=== PATIENT | female | born 1945 | race Asian ===

== ENCOUNTER 2016-06-18 12:22 | Emergency (ER) | payer BC, MEDICAID, OTHER ==
[~2016-06-18] VITALS: Ht 154.9 cm; Wt 51.0 kg
[~2016-06-18 12:22] MED LIST: ALEN35TA23 PO; ASPI-664 PO; LIPITOR PO; NORVASC PO
[2016-06-18 12:39] VITALS: Ht 154.9 cm; Wt 51.0 kg
[2016-06-18] MEDS ORDERED: IBUPROFEN 800 MG TAB PO ONE (15:00)
[2016-06-18] MEDS ORDERED: IBUP-1542 PO (15:28)
--- NOTE | 2016-06-18 15:31 | ERD ---
ER Documentation Chief Complaint Date/Time DATE: 06/18/16 TIME: 15:31 Chief Complaint HAS BACK PAIN AND COLD SYMPTOMS HPI Patient is a 70-year-old female with hypertension and high cholesterol presents with back pain. She has upper and middle back pain which started over the past 2 weeks. It has been coming and going and worse with movement. She also has a runny nose over the past 1 week. She feels like she has had a cold. She has not had any treatment other than Tylenol for pain as of yet. Her primary doctor is Dr. Raquel Tavarez. She has chest wall pain as well with movement. ROS All systems reviewed and are negative except as per history of present illness. Medications Home Meds Active Scripts Ibuprofen* (Motrin*) 600 Mg Tab, 600 MG PO Q6H Y for PAIN AND OR ELEVATED TEMP, #30 TAB Prov:DEBBIE TIERNEY MD 06/18/16 Reported Medications Aspirin* (Aspirin* EC) 81 Mg Tablet.dr, 81 MG PO DAILY, TAB 03/14/14 Alendronate Sodium* (Alendronate Sodium*) 35 Mg Tablet, 35 MG PO Q7D, TAB 03/14/14 [Norvasc] No Conflict Check, 20 MG PO QAM 02/07/14 [Lipitor] No Conflict Check, 10 MG PO QHS 02/07/14 Allergies Allergies: Coded Allergies: No Known Allergy (Unverified , 02/07/14) PMhx/Soc History of Surgery: Yes (COLON, APPENDIX) Anesthesia Reaction: No Hx Neurological Disorder: No Hx Respiratory Disorders: No Hx Cardiac Disorders: Yes (HTN, HIGH CHOLESTEROL, ) Hx Psychiatric Problems: No Hx Miscellaneous Medical Probl: No Hx Alcohol Use: Yes (RARE) Hx Substance Use: No Hx Tobacco Use: No Smoking Status: Never smoker FmHx Positive for hypertension Physical Exam Vitals Vital Signs Date Time Temp Pulse Resp B/P Pulse Ox O2 Delivery O2 Flow Rate FiO2 06/18/16 15:34 98.1 78 18 152/69 100 Room Air 06/18/16 12:39 99.4 77 18 166/77 100 Physical Exam Const: No acute distress Head: Atraumatic Eyes: Normal Conjunctiva ENT: Normal External Ears, Nose and Mouth. Neck: Full range of motion..~ No meningismus. Resp: Clear to auscultation bilaterally Cardio: Regular rate and rhythm, no murmurs Abd: Soft, non tender, non distended. Normal bowel sounds Skin: No petechiae or rashes Back: Bilateral upper back pain with palpation without midline tenderness to palpation Ext: No cyanosis, or edema Neur: Awake and alert Psych: Normal Mood and Affect Results 24 hrs Current Medications Medications (Trade) Dose Ordered Sig/Ana Route PRN Reason Start Time Stop Time Status Last Admin Dose Admin Ibuprofen (Motrin) 800 mg ONCE ONCE PO 06/18/16 15:00 06/18/16 15:01 DC 06/18/16 14:44 Procedures/MDM EKG read by me: Rate/Rhythm: Regular rate and rhythm at a rate of 78 Intervals: Normal Impression: No evidence of ischemia or arrhythmia Chest X-ray 1V Interpreted by me: Soft Tissue: No acute abnormalities Bones: No acute abnormalities Mediastinum/Cardiac Silhouette/Lungs: No acute abnormalities Patient is a 70-year-old female who presents with chest pain and upper back pain. Her EKG was normal and her chest x-ray shows no signs of pneumonia or pneumothorax. There is no widened mediastinum. She is otherwise well- appearing. Her symptoms appear to be musculoskeletal in nature. At this point I doubt acute coronary syndrome, pneumonia, pneumothorax, or pulmonary embolism. I believe outpatient management is appropriate. The patient was given ibuprofen for pain. She should follow-up closely however with her primary doctor within 24-48 hours for reevaluation. She can return for any worsening symptoms. Departure Diagnosis: Primary Impression: Back pain Back pain location: thoracic back pain Chronicity: acute Back pain laterality: bilateral Qualified Code: M54.6 - Acute bilateral thoracic back pain Additional Impression: Chest pain Chest pain type: unspecified Qualified Code: R07.9 - Chest pain, unspecified type Condition: Fair Patient Instructions: Back Pain (Acute Or Chronic) Referrals: JAYRO KAISER MD (PCP) Additional Instructions: Call your primary care doctor TOMORROW for an appointment during the next 1-2 days.See the doctor sooner or return here if your condition worsens before your appointment time. DEBBIE TIERNEY MD Jun 18, 2016 15:31
--- NOTE | 2016-06-18 15:31 | RADRPT ---
PROCEDURE: XR Chest. CLINICAL INDICATION: Back pain TECHNIQUE: Chest PA. COMPARISON: 03/06/2014 FINDINGS: The mediastinal structures are unremarkable. The heart is normal in size and configuration. The pu lmonary vascularity is normal. The lung gama are unremarkable. No consolidation is identified. The pleural spaces are unremarkable. The axial skeleton is unremarkable. IMPRESSION: No active intrathoracic disease. RPTAT: [facility] .Wally Luciano MD, MD Date Time Electronically viewed and signed by .Wally Luciano MD, on 06/18/2016 15:30 .B/
[2016-06-18 15:34] VITALS: BP 152/69; PULSE 78; RESP 18; TEMP 98.1
== END 2016-06-18 15:35 | disposition home or self-care (01) ==
LOC: FTE 12:22
DX: M54.6 Pain in thoracic spine (principal); R07.9 Chest pain, unspecified; I10 Essential (primary) hypertension; Z79.82 Long term (current) use of aspirin
CPT/HCPCS: 71010; 93005; Z7610